=== PATIENT | female | born 1950 | race Hispanic/Latino ===

== ENCOUNTER 2023-06-14 21:39 | Emergency (ER) | payer MEDICARE ==
[~2023-06-14] VITALS: Ht 160 cm; Wt 96.2 kg
[2023-06-14] MEDS ORDERED: FAMOTIDINE 20 MG/2 ML VIAL IV STA (22:07)
[2023-06-14] MEDS ORDERED: ONDANSETRON HCL INJ 2MG/ML 2ML 2 MG/ML VIAL IV STA (22:07)
[2023-06-14] MEDS ORDERED: LORAZEPAM 0.5 MG TAB PO ONE (22:30)
[2023-06-14] MEDS ORDERED: ONDANSETRON HCL INJ 2MG/ML 2ML 2 MG/ML VIAL ONE (22:31)
[2023-06-14] MEDS ORDERED: SODIUM CHLORIDE 0.9% 100 ML ONE (22:32)
[2023-06-14] MEDS ORDERED: LORAZEPAM 0.5 MG TAB ONE (22:32)
[2023-06-15] MEDS ORDERED: ONDANSETRON ODT4 MG PO (00:16)
[2023-06-15] MEDS ORDERED: CARAFATE1 GM PO (00:18)
[2023-06-15] MEDS ORDERED: OMEPRAZOLE40 MG PO (00:28)
[2023-06-15 00:35] VITALS: BP 156/67; PULSE 90; RESP 18; TEMP 98; O2SAT 95
== END 2023-06-15 00:35 | disposition home or self-care (01) ==
LOC: FSED 21:51
DX: R10.33 Periumbilical pain (principal); K80.20 Calculus of gallbladder without cholecystitis without obstruction; K44.9 Diaphragmatic hernia without obstruction or gangrene; I10 Essential (primary) hypertension
CPT/HCPCS: 74176; 80053; 80076; 81003; 85025; 96374; 96376; 99284; J2405; J7050